=== PATIENT | female | born 1990 | race American Indian/Alaskan Native ===

== ENCOUNTER 2022-11-12 17:30 | Emergency (ER) | payer MEDICAID ==
[2022-11-12 17:53] LABS: APPEARANCE,URINE CLOUDY (CLEAR); BILIRUBIN,URINE NEGATIVE (NEGATIVE); COLOR,URINE DARK YELLOW (YELLOW); GLUCOSE,URINE NEGATIVE (NEGATIVE); KETONES,URINE 15 (NEGATIVE); LEUKOCYTE ESTERASE,URINE MODERATE (NEGATIVE); NITRITE,URINE POSITIVE (NEGATIVE); OCCULT BLOOD,URINE MODERATE (NEGATIVE); PH,URINE 5.5 (5.0-9.0); PROTEIN,URINE 100 (NEGATIVE)
[2022-11-12 18:01] LABS: WBC,URINE PACKED /HPF (0-5/HPF)
[2022-11-12 18:02] LABS: AMORPHOUS SEDIMENT,URINE FEW /HPF (NOT SEEN); BACTERIA,URINE MANY /HPF (0-FEW/HPF); EPITHELIAL CELLS,URINE FEW /HPF (NOT SEEN); MUCUS,URINE FEW /LPF (NOT SEEN)
[2022-11-12] MEDS ORDERED: cefTRIAXone 1 GM Vial IVPUSH ONE (18:10)
[2022-11-12] MEDS ORDERED: Ertapenem 1 GM Vial IVPUSH ONE (18:10)
[2022-11-12] MEDS ORDERED: Sodium Chloride 0.9% 10 ML Syringe FLUSH PRN (18:10)
[2022-11-12] MEDS ORDERED: Azithromycin 250 MG Tab PO ONE (18:10)
[2022-11-12] MEDS ORDERED: metroNIDAZOLE 250 MG Tab PO ONE (18:17)
== END 2022-11-12 18:59 | disposition home or self-care (01) ==
LOC: DL.ED 17:30
DX: N39.0 Urinary tract infection, site not specified (principal); Z20.2 Contact with and (suspected) exposure to infections with a predominantly sexual mode of transmission
CPT/HCPCS: 81001; 87086; 87088; 87186; 87491; 87563; 87591; 96374; 96375; 99283; A9270; J0696; J1335; J3490